=== PATIENT | male | born 1995 | race Caucasian/White ===

== ENCOUNTER 2021-01-15 07:24 | Emergency (ER) | payer SELFPAY ==
[2021-01-15 07:35] VITALS: BP 156/75; PULSE 86; RESP 16; TEMP 36.5; O2SAT 99
--- NOTE | 2021-01-15 08:06 | ED.GENADUL_ITS ---
Discharge Plan Disposition Patient Disposition: HOME Condition: Improving Discharge Details Clinical Impression: Impacted cerumen of both ears Primary Care Provider: None,None ED Provider: Víctor Ford Home Meds and New Rx's Prescriptions: New amoxicillin 875 mg tablet 875 mg PO BID Qty: 20 RF: 0 Discharge Instructions Instructions: Impactaci?n de Cerumen (ED) Additional Instructions: Your cerumen impaction bilaterally has been resolved. I would use kkij-[id number] wax drops daily to prevent another wax buildup and be sure not to use Q-tips deeply in your ear. Please watch for new or worsening symptoms and return to the ER for any concerns. Your right eardrum is slightly red but I believe this is likely secondary to irritation and trauma, no signs of perfora tion. If you have pain in your ear in the next 48 hours I have provided you a prescription for antibiotics but I do not think you will need them. Medical Decision Making 25-year-old gentleman presents with a right ear cerumen impaction. Unable to visualize TM. No obvious trauma. Will place Debrox in his right ear and attempt to irrigate. Then will attempt the left ear. Both ears had total cerumen impaction and have been removed completely. He canals are now unremarkable. Left TM is unremarkable, right TM with minimal erythema. Patient reports feeling dramatic improvement. I feel like the erythema is more likely secondary to irritation as opposed to true infection. Will provide prescription for antibiotics if patient has symptoms over the next 24 to 48 hours otherwise he will take Tylenol and/or Motrin, use drops daily. No additional questions or concerns. We also discussed how to properly use Q-tips. This documentation was generated using [employer] dictation system, please disregard any oddities of phrase or misspellings. HPI General Mode of arrival: ambulatory . Date/Time Provider Initiated Documentation: 01/15/21 07:59 . Limitations to Documentation: no limitations . Information obtained by: patient . HPI Narrative: This is a 25-year-old male, denies significant past medical history, presenting to the ER today for right ear pain after using Q-tips pushing the wax too deeply yesterday. Patient reports that she does have a chronic wax issue, attempted to use [id number]-[id number] drops yesterday but felt like he only made the problem worse yesterday after using Q-tips. He denies any left ear pain. He denies any fever, right ear drainage or any other symptoms. Reports the pain is mild, d ull, feels like his ear is muffled. Related Data Home Medications Medication Instructions Recorded Confirmed amoxicillin 875 mg PO BID #20 tab 01/15/21 Previous Rx's Medication Instructions Recorded amoxicillin 875 mg PO BID #20 tab 01/15/21 Allergies Allergy/AdvReac Type Severity Reaction Status Date / Time No Known Allergies Allergy Unverified 01/15/21 07:40 General Stated Complaint: EarProblem TRISTAN: 4 Review of Systems Constitutional Constitutional: Denies fever(s) and Denies headache(s) ENT Ears, Nose, Mouth, and Throat: Denies ear discharge and Denies headache(s) Integumentary/Breasts Skin/Breast: Denies erythema Neurologic Neurologic: Denies headache(s) [facility] Active Problem List (Updated 01/15/21 @ 08:38 by NATE Murrell) Impacted cerumen of both ears (Acute) Social History Smoking/Tobacco Use Status: Former Tobacco Use Smoking risk assessment performed?: Yes Drug use: Daily Substance use type: marijuana Do you feel safe in your relationship?: Yes Exam Const General: cooperative, healthy appearing, comfortable and no acute distress Orientation: alert and awake HENMA Head: normal to inspection, normocephalic and atraumatic Ears: EAC's normal, external ear abnormal and unable to visualize TM bilaterally (Cerumen impaction) Face and sinus: normal facial exam Mouth: moist mucous membranes Eyes General: appearance normal, both eyes and all related structures Conjunctivae: conjunctivae normal Neck Neck: normal visual inspection, full ROM, trachea midline and supple Resp Effort & Inspection: normal respiratory effort and able to speak in complete sentences Cardio Rate: regular rate Rhythm: regular rhythm Skin General skin exam: no rashes or lesions noted Neuro General: patient alert, patient awake, moves all extremities and no focal motor deficits Sensory Exam: no sensory deficits noted Psych Appearance: grossly normal Mental Status: mental status grossly normal Course Vital Signs Vital signs: Vital Signs Temperature 36.5 C 01/15/21 07:35 Pulse 86 01/15/21 07:35 Respiratory Rate 16 01/15/21 07:35 Blood Pressure 156/75 H 01/15/21 07:35 Pulse Oximetry 99 01/15/21 07:35 Temperature 36.5 C 01/15/21 07:35 Temperature Source Skin 01/15/21 07:35 Pulse 86 01/15/21 07:35 Respiratory Rate 16 01/15/21 07:35 Respiratory Effort Non-Labored 01/15/21 07:35 Blood Pressure 156/75 H 01/15/21 07:35 Blood Pressure Position Sitting 01/15/21 07:35 Pulse Oximetry 99 01/15/21 07:35 Oxygen Delivery Method Room Air 01/15/21 07:35 Oxygen Flow Rate 0 01/15/21 07:35 Pain Level 4 01/15/21 07:41 Procedures Ear Wax Removal Both Ears: Cerumenolytic Used: Cerumenex Results: Re-examined: cerumen removed completely TM Visible: TM(s) erythematous (Minimally right, left normal), perforation in right ear and perforation in left ear Ear Canal: atraumatic Patient Tolerated Procedure: well Complications: no problems Technique: ear canal irrigated PAWSS Have you Been Recently Intoxicated or Drunk Within the Last 30 days?: Yes Have you Ever Experienced Previous Episodes of Alcohol Withdrawal?: No Have you ever Experienced Withdrawal Seizures?: No Have you ever Experienced Delirium Tremens(DT)s?: No Have you ever undergone Alcohol Rehabilitation Treatment (i.e, inpt ot outpatient treatment programs)?: No Have you ever Experienced Blackouts?: No Have you ever Combined Alcohol with other Downers within the last 90 days?: No Have you ever Combined Alcohol with any other Substance of Abuse during the last 90 days?: No Positive Blood Alcohol level on Presentation? [PCS.BAL]: No Evidence of Increased Autonomic Activity (i.e. HR>120, tremor, sweating, agitation, nausea)?: No Result: 1
[2021-01-15] MEDS: Carbamide Peroxide 15 ML BTL AU (08:46)
== END 2021-01-15 08:46 | disposition home or self-care (01) ==
PROVIDERS: Emergency Provider Physician Assistant
DX: H61.21 Impacted cerumen, right ear (principal)
CPT/HCPCS: 69209

== ENCOUNTER 2022-06-01 14:24 | Emergency (ER) | payer MEDICAID, SELFPAY ==
[2022-06-01 14:34] VITALS: BP 158/75; PULSE 102; RESP 18; TEMP 37.3; O2SAT 99
--- NOTE | 2022-06-01 15:18 | ED.GENADUL_ITS ---
Discharge Plan Disposition Patient Disposition: Home Discharge Details Clinical Impression: Uvulitis Primary Care Provider: None,None ED Provider: Milena Loredo Home Meds and New Rx's Prescriptions: New dexamethasone 4 mg tablet 4 mg PO DAILY Qty: 3 0RF Discharge Instructions Additional Instructions: Cepacol lozenges Take the Decadron as prescribed, 1 tab daily for the next 3 days Warm tea Return earlier should you have any worsening complaints Your strep test was negative today Should you have persistent symptoms I do recommend reassessment in 48 to 72 hours Discharge Data Discharge Date/Time-TO BE ENTERED AT DEPARTURE: 06/01/22 15:45 Medical Decision Making Patient patient on steroids for the next couple days secondary to suspected uvulitis, low suspicion for mononucleosis, however with persistent symptoms will need repeat assessment Negative rapid strep No indication for antibiotics clinically Afebrile and otherwise nontoxic, no evidence of airway compromise Maintaining secretions Return precautions reviewed and patient expressed understanding Medical Records Medical records reviewed: Yes I reviewed the patient's medical records. Lab Data Lab results reviewed: Yes I reviewed the patient's lab results. HPI General Date/Time Provider Initiated Documentation: 06/01/22 14:36 . HPI Narrative: 27-year-old male presents with report of right sided throat pain which started this morning. Has been sick with upper respiratory symptoms for the past week. Denies any difficulty swallowing or globus sensation. Related Data Home Medications Medication Instructions Recorded Confirmed dexamethasone 4 mg tablet 4 mg PO DAILY #3 tabs 06/01/22 Previous Rx's Medication Instructions Recorded dexamethasone 4 mg tablet 4 mg PO DAILY #3 tabs 06/01/22 Allergies Allergy/AdvReac Type Severity Reaction Status Date / Time No Known Allergies Allergy Unverified 06/01/22 14:38 General Stated Complaint: Sorethroat TRISTAN: 4 PFSH All Active Problems (Updated 06/01/22 @ 15:38 by NATE Munguia) Impacted cerumen of both ears (Acute) Uvulitis (Acute) Social History Smoking/Tobacco Use Status: Current every day Tobacco Type: e-cigarettes Smoking risk assessment performed?: Yes Drug use: Occasionally Substance use type: marijuana Do you feel safe at home: Yes Do you feel safe in your relationship?: Yes Exam Const General: cooperative, comfortable and no acute distress HENMT Other: Right-sided soft palate with mild erythema, mild swelling to uvula, maintaining secretions, uvula midline, no evidence of retropharyngeal or peritonsillar abscess clinically, no voice abnormality, maintaining secretions, no trismus, no stridor Right submandibular lymphadenopathy, no occipital lymphadenopathy, no meningismus Course Vital Signs Vital signs: Vital Signs Temperature 37.3 C 06/01/22 14:34 Pulse 102 H 06/01/22 14:34 Respiratory Rate 18 06/01/22 14:34 Blood Pressure 158/75 H 06/01/22 14:34 Pulse Oximetry 99 06/01/22 14:34 Temperature 37.3 C 06/01/22 14:34 Temperature Source Oral 06/01/22 14:34 Pulse 102 H 06/01/22 14:34 Respiratory Rate 18 06/01/22 14:34 Respiratory Effort Normal 06/01/22 14:38 Blood Pressure 158/75 H 06/01/22 14:34 Blood Pressure Position Sitting 06/01/22 14:34 Pulse Oximetry 99 06/01/22 14:34 Oxygen Delivery Method Room Air 06/01/22 14:34 Oxygen Flow Rate 0 06/01/22 14:34 Pain Level 8 06/01/22 14:34 Lab/Test Results Lab/Test Results: 06/01/22 14:36 Tonsil - Not Specified Group A Streptococcus Culture - Pending POC Strep Test-RENETTA(Rapid) Start: 06/01/22 14:46 Freq: Status: Active Protocol: Document 06/01/22 14:46 (Rec: 06/01/22 14:46 [id number]) Strep test-RENETTA(Rapid)-POC POC-Strep test-RENETTA (Rapid) Negative POC-Strep test-RENETTA (Rapid) Negative
== END 2022-06-01 15:45 | disposition home or self-care (01) ==
PROVIDERS: Emergency Provider Physician Assistant
DX: K12.2 Cellulitis and abscess of mouth (principal)
CPT/HCPCS: 87880; 99283; 87081

== ENCOUNTER 2023-10-02 12:42 | Emergency (ER) | payer MEDICAID, SELFPAY ==
[2023-10-02 12:53] VITALS: BP 145/71; PULSE 61; RESP 18; TEMP 36.8
--- NOTE | 2023-10-02 13:33 | ED.GENADUL_ITS ---
Discharge Plan Disposition Patient Disposition: Home Condition: Stable Discharge Details Clinical Impression: Laceration of left middle finger Primary Care Provider: Unknown,Unknown ED Provider: Peter Cotter Home Meds and New Rx's Prescriptions: No Action dexamethasone 4 mg tablet 4 mg PO DAILY Qty: 3 0RF Discharge Instructions Instructions: Wound Care ED, Laceration Repair With Glue ED Additional Instructions: You were seen in the emergency department for the cut of your left middle finger, we offered you suture repair versus Surgicel dressing and repair by semipermanent tape called Steri-Strips, you opted for Steri-Strips, we applied this dressing and rechecked the area and it was not losing any blood anymore, I think this will be a reasonable choice, the Steri-Strips will stay on for 1 to 2 weeks, your wound should be fully healed in around 10 days. I did send you home with some extra supplies to redress the area if need be. Please return for any significant oozing of blood despite being dressed, I would elevate and gently compress the area for the rest of the day and evening while at rest at home tonight. Please return to the emergency department for signs of infection like increasing swelling, redness, drainage of pus from the area, complete numbness distally, please recheck your circulatory status in the fingertip often. You do have about 18 hours after a laceration to perform a reasonable repair we did clean the wound here so please recheck in a few hours if you are continuing to ooze through any further dressings or if there is a significant amount of bleeding still I think you should return to the ER for suture repair. You stated that your tetanus was possibly up-to-date you wished to check with your primary doctor before obtaining of the updated booster today. Discharge Data Discharge Date/Time-TO BE ENTERED AT DEPARTURE: 10/02/23 13:46 HPI General Date/Time Provider Initiated Documentation: 10/02/23 13:02 . HPI Narrative: 28 year-old male presents to ED today by POV/ambulating with a chief complaint of L middle finger laceration 2cm with onset about 2 hours prior to arrival- was swinging a broom around and it broke, has attempted elevation and direct pressure. Quality described as mild oozing of blood, no radiation to syncope, dizziness, bruising, crushing trauma. Severity is described as mild. Palliating factors include direct pressure bandage. Provoking factors include nothing specific. Events leading up to the incident/Associated Symptoms: Patient unsure of last Tdap, but prefers to check with his PCP. Patient not anticoagulated. Related Data Home Medications ?Medication ?Instructions ?Recorded ?Confirmed dexamethasone 4 mg tablet 4 mg PO DAILY #3 tabs 06/01/22 Previous Rx's ?Medication ?Instructions ?Recorded dexamethasone 4 mg tablet 4 mg PO DAILY #3 tabs 06/01/22 Allergies Allergy/AdvReac Type Severity Reaction Status Date / Time No Known Allergies Allergy Unverified 06/01/22 14:38 General Stated Complaint: Laceration TRISTAN: 3 Exam Narrative Exam Narrative: GENERAL APPEARANCE: Well-nourished, non-toxic, awake and alert, atraumatic, no acute distress. SKIN: Warm, pink, dry, intact, 1.5 cm linear finger laceration the left middle finger palmar aspect with mild oozing of blood, neurovascular intact of the right, brisk capillary refill HEAD: Normocephalic, atraumatic, normal hair distribution for gender/age. EYES: Normal conjunctiva, no exudates on lids/lashes. ENT: Nares patent, no circumoral cyanosis, no facial swelling NECK: Supple, trachea midline, painless cervical ROM. LUNGS/CHEST: Non-labored respirations, normal A/P diameter, symmetrical expansion, no chest wall deformity HEART (CV/PV): Regular rate, no peripheral edema, no JVD, L radial pulse 2+. ABDOMEN: Soft, non-distended, no guarding, no tenderness. MSK: Normal ROM, no swelling/deformity to bilateral UEs or LEs, moving all extremities without weakness, no cyanosis, spine midline without tenderness, normal curvature. NEURO: Mental Status AAOx4 - alert to person, place, time, events No facial droop, no forehead involvement. Motor: No focal weakness - strength 5/5 in bilateral UEs and LEs, proximal and distal, symmetric. Sensory: sensation intact to light touch globally. Gait normal: patient ambulated without ataxia into ED room. PSYCH: euthymic, cooperative, pleasant, appropriate speech Course Vital Signs Vital signs: Vital Signs Temperature 36.8 C 10/02/23 12:53 Pulse 61 10/02/23 12:53 Respiratory Rate 18 10/02/23 12:53 Blood Pressure 145/71 H 08/23/24 12:53 Temperature 36.8 C 10/02/23 12:53 Pulse 61 10/02/23 12:53 Respiratory Rate 18 10/02/23 12:53 Blood Pressure 145/71 H 10/02/23 12:53 Procedures Laceration Laceration 1: Site: hand Side (If applicable): left Size (cm): 1.5 Description: linear and clean Depth: simple, single layer Pre-repair: irrigated extensively and deep structures intact Skin layer closed with: other (Surgicel dressing and 3 Steri-Strips) Medical Decision Making This dictation utilizes [id number]-ep-[id number] dictation software and may contain unedited grammatical errors. 28 year-old male presents to ED today by POV/ambulating with a chief complaint of L middle finger laceration 2cm with onset about 2 hours prior to arrival- was swinging a broom around and it broke, has attempted elevation and direct pressure. Quality described as mild oozing of blood, no radiation to syncope, dizziness, bruising, crushing trauma. Severity is described as mild. Palliating factors include direct pressure bandage. Provoking factors include nothing specific. Events leading up to the incident/Associated Symptoms: Patient unsure of last Tdap, but prefers to check with his PCP. Patients' medical history: Negative, otherwise healthy. Family and social history: Noncontributory. Pertinent exam findings / vital signs include 1.25 cm laceration on the palmar aspect of the distal left middle finger, linear and superficial with some minor oozing of blood, brisk capillary refill distal, full range of motion without signs of hand trauma. Differential / pathologies of concern include laceration. Diagnostic studies of: -None. Interventions of: -Per patient preference he wanted to avoid sutures if possible I did perform a Surgicel dressing with Steri-Strips advised on general wound care at home, strict return criteria in the next 4 to 6 hours for any continued bleeding for likely revision suture. Findings not consistent with neurovascular compromise, hemorrhage. Disposition of laceration of left middle finger. Patient verbalized understanding of the plan and return to ED criteria and engaged in shared decision making. Medical Records Medical records reviewed: Yes I reviewed the patient's medical records. Quality:SDOH Health Related Social Needs: No Data to Display PFSH All Active Problems (Updated 10/02/23 @ 13:36 by NATE Ashraf) Laceration of left middle finger (Acute) Impacted cerumen of both ears (Acute) Social History Smoking/Tobacco Use Status: Current every day Tobacco Type: e-cigarettes Smoking risk assessment performed?: Yes Drug use: Occasionally Substance use type: marijuana Do you feel safe at home: Yes Do you feel safe in your relationship?: Yes
[2023-10-02 13:44] VITALS: BP 138/74; PULSE 64; RESP 18; O2SAT 98
[2023-10-02] MEDS: Cellulose,Oxidized 2X3 PKT 1 EACH MC ×2 (13:44)
== END 2023-10-02 13:46 | disposition home or self-care (01) ==
PROVIDERS: Emergency Provider Physician Assistant
DX: W26.8XXA Contact with other sharp object(s), not elsewhere classified, initial encounter; S61.213A Laceration without foreign body of left middle finger without damage to nail, initial encounter
CPT/HCPCS: 12001